=== PATIENT | male | born 1960 | race Caucasian/White ===

== ENCOUNTER 2020-09-24 19:57 | Inpatient (IN) | payer BC, MEDICAID ==
[~2020-09-24] VITALS: Ht 172.7 cm; Wt 102.3 kg
[~2020-09-24 19:57] MED LIST: CEFD300C37 PO; eliquis
[2020-09-24] MEDS ORDERED: ONDANSETRON 2MG/ML, 2ML ONE (20:29)
[2020-09-24] MEDS ORDERED: KETOROLAC 30 MG/1 ML ONE (20:29)
[2020-09-24] MEDS ORDERED: ONDANSETRON 2MG/ML, 2ML IVPush ONE (20:30)
[2020-09-24] MEDS ORDERED: SODIUM CHLORIDE FLUSH 10ML SYR IVF ONE (20:30)
[2020-09-24] MEDS ORDERED: SODIUM CHLORIDE 0.9% 1,000ML IV ONE (20:30)
[2020-09-24] MEDS ORDERED: KETOROLAC 30 MG/1 ML IM ONE (20:30)
[2020-09-24 20:44] LABS: BASOPHILS % (AUTO) 1 % (0-1); EOSINOPHILS % (AUTO) 5 % (1-7); LYMPHOCYTES % (AUTO) 20 % (22-44); MEAN CORPUSCULAR HGB CONC 33.6 g/dL (33.2-36.2); MEAN PLATELET VOLUME 7.9 fL (7.4-10.4); MONOCYTES % (AUTO) 10 % (2-9); NEUTROPHILS % (AUTO) 64 % (42-75); PLATELET COUNT 91 x10^3/uL (130-400); RED CELL DISTRIBUTION WIDTH 15.3 % (9.4-14.8)
[2020-09-24 20:45] LABS: MD NO
[2020-09-24 20:52] LABS: ALANINE AMINOTRANSFERASE 29 U/L (12-78); ALBUMIN 2.9 g/dL (3.4-5.0); ANION GAP 7 mmol/L (5-15); CALCIUM 8.5 mg/dL (8.5-10.1); CHLORIDE 110 mmol/L (98-107); CREATININE 0.82 mg/dL (0.7-1.3)
[2020-09-24 20:55] LABS: ALKALINE PHOSPHATASE 119 U/L (45-117); BILIRUBIN,TOTAL 0.4 mg/dL (0.2-1.0); INTERNATIONAL NORMALIZED RATIO 1.08 (0.93-1.1); PROTHROMBIN TIME 11.5 Seconds (9.6-11.5)
[2020-09-24] MEDS ORDERED: KETOROLAC 30 MG/1 ML IVPush ONE (21:00)
--- NOTE | 2020-09-24 21:10 | NUR ---
PT UNABLE TO GIVE URINE SAMPLE AT THIS TIME.
--- NOTE | 2020-09-24 21:13 | NUR ---
PT BIB SELF VIA POV. PER PT "I HAVE KIDNEY STONES. I HAD STENTS PLACED 4 MONTHS AGO. IM URINATING BLOOD FOR 2 MONTHS". PT STATES HE DRINKS 1/2 PINT OF WHISKEY TO HELP WITH PAIN FROM KIDNEY STONES, BUT RECENTLY PAIN HAS GOTTEN WORSE. PT RESTING IN [facility], MONITORING IN PLACE, JEN AT THIS TIME, WCYAZMIN.
[2020-09-24 21:56] LABS: MICROSCOPIC INDICATED
--- NOTE | 2020-09-24 22:06 | NUR ---
PT TO XRAY AT THIS TIME.
--- NOTE | 2020-09-24 22:51 | NUR ---
PT RESTING IN [facility], PER PT NO NEEDS AT THIS TIME, WCTM.
[2020-09-25] LABS: AMPHETAMINE SCREEN, URINE Positive (Negative); BARBITURATE SCREEN, URINE Negative (Negative); BENZODIAZEPINE SCREEN, URINE Negative (Negative); CANNABINOID SCREEN, URINE Negative (Negative); COCAINE SCREEN, URINE Negative (Negative); METHADONE SCREEN, URINE Negative (Negative); OPIATE SCREEN, URINE Negative (Negative)
[2020-09-25] MEDS ORDERED: SODIUM CHLORIDE 0.9% 1,000 ML IV ONE
[2020-09-25] MEDS ORDERED: CEFTRIAXONE 2 GM in DEXTROSE 5% 50 ML IVPB ONE
[2020-09-25 00:25] VITALS: BP 144/76
[2020-09-25] MEDS ORDERED: KETOROLAC 30 MG/1 ML IV PRN (00:30)
[2020-09-25] MEDS ORDERED: BISACODYL 10 MG SUPP PR PRN (00:30)
[2020-09-25] MEDS ORDERED: POLYETHYLENE GLYCOL 17 GM PACKET PO PRN (00:30)
[2020-09-25] MEDS ORDERED: ACETAMINOPHEN 325 MG TABLET PO PRN (00:30)
[2020-09-25] MEDS ORDERED: ONDANSETRON 2MG/ML, 2ML IVPush PRN (00:30)
[2020-09-25] MEDS ORDERED: FLU VACC QS2020-21(6MOS UP)/PF 60MCG/0.5 ML SYR IM-VACC ONE (01:00)
[2020-09-25] MEDS: morphine SULFATE 10 MG/ML, 1ML IVPush PRN ×2 (01:33→09:35)
[2020-09-25 05:24] LABS: BASOPHILS % (AUTO) 1 % (0-1); EOSINOPHILS % (AUTO) 5 % (1-7); LYMPHOCYTES % (AUTO) 24 % (22-44); MEAN CORPUSCULAR HEMOGLOBIN 33.9 pg (27.5-34.5); MEAN CORPUSCULAR HGB CONC 33.4 g/dL (33.2-36.2); MEAN PLATELET VOLUME 8.5 fL (7.4-10.4); MONOCYTES % (AUTO) 14 % (2-9); NEUTROPHILS % (AUTO) 56 % (42-75); PLATELET COUNT 66 x10^3/uL (130-400); RED BLOOD COUNT 3.57 x10^6/uL (4.38-5.82); RED CELL DISTRIBUTION WIDTH 15.7 % (9.4-14.8)
[2020-09-25 05:26] LABS: MD NO
[2020-09-25 05:34] LABS: ANION GAP 3 mmol/L (5-15); CALCIUM 7.8 mg/dL (8.5-10.1); CHLORIDE 113 mmol/L (98-107)
[2020-09-25 05:36] LABS: CREATININE 0.72 mg/dL (0.7-1.3)
[2020-09-25] MEDS: SODIUM CHLORIDE 0.9% 1,000 ML IV SCH ×3 (05:41→23:00)
[2020-09-25 06:32] VITALS: BP 142/74
[2020-09-25] MEDS: SENNA/DOCUSATE TABLET PO SCH (08:59)
[2020-09-25] MEDS ORDERED: RIVA20TA PO (10:37)
[2020-09-25] MEDS ORDERED: RIVAROXABAN 20 MG TABLET PO SCH (11:00)
[2020-09-25 12:01] VITALS: BP 166/90
[2020-09-25 18:56] VITALS: BP 127/77
[2020-09-25] MEDS: CEFTRIAXONE 2 GM in DEXTROSE 5% 50 ML IVPB SCH (23:00)
[2020-09-26 00:16] VITALS: BP 150/78
[2020-09-26 06:37] VITALS: BP 130/76
[2020-09-26 07:59] LABS: BASOPHILS % (AUTO) 2 % (0-1); EOSINOPHILS % (AUTO) 4 % (1-7); LYMPHOCYTES % (AUTO) 18 % (22-44); MEAN CORPUSCULAR HGB CONC 33.4 g/dL (33.2-36.2); MEAN PLATELET VOLUME 8.4 fL (7.4-10.4); MONOCYTES % (AUTO) 12 % (2-9); NEUTROPHILS % (AUTO) 64 % (42-75); PLATELET COUNT 67 x10^3/uL (130-400); RED BLOOD COUNT 3.72 x10^6/uL (4.38-5.82)
[2020-09-26 08:06] LABS: ALANINE AMINOTRANSFERASE 25 U/L (12-78); ALBUMIN 2.8 g/dL (3.4-5.0); ANION GAP 4 mmol/L (5-15); CALCIUM 7.8 mg/dL (8.5-10.1); CHLORIDE 108 mmol/L (98-107); CREATININE 0.69 mg/dL (0.7-1.3)
[2020-09-26 08:07] LABS: MD NO
[2020-09-26 08:08] LABS: ALKALINE PHOSPHATASE 109 U/L (45-117); BILIRUBIN,TOTAL 1.3 mg/dL (0.2-1.0); TOTAL PROTEIN 6.7 g/dL (6.4-8.2)
[2020-09-26] MEDS: SENNA/DOCUSATE TABLET PO SCH (08:39)
[2020-09-26] MEDS: morphine SULFATE 10 MG/ML, 1ML IVPush PRN ×2 (08:41→21:47)
[2020-09-26 12:25] VITALS: BP 147/78
[2020-09-26 18:37] VITALS: BP 153/84
[2020-09-27] VITALS: BP 95/73
[2020-09-27] MEDS: CEFTRIAXONE 2 GM in DEXTROSE 5% 50 ML IVPB SCH ×2 (00:03→23:49)
[2020-09-27 02:07] VITALS: BP 144/72
[2020-09-27 06:51] VITALS: BP 139/82
[2020-09-27 07:05] LABS: BASOPHILS % (AUTO) 1 % (0-1); EOSINOPHILS % (AUTO) 4 % (1-7); LYMPHOCYTES % (AUTO) 19 % (22-44); MEAN CORPUSCULAR HEMOGLOBIN 33.6 pg (27.5-34.5); MEAN CORPUSCULAR HGB CONC 33.5 g/dL (33.2-36.2); MEAN PLATELET VOLUME 8.5 fL (7.4-10.4); MONOCYTES % (AUTO) 11 % (2-9); NEUTROPHILS % (AUTO) 65 % (42-75); PLATELET COUNT 75 x10^3/uL (130-400); RED CELL DISTRIBUTION WIDTH 15.1 % (9.4-14.8)
[2020-09-27 07:13] LABS: MD NO
[2020-09-27 07:17] LABS: ALANINE AMINOTRANSFERASE 25 U/L (12-78); ANION GAP 6 mmol/L (5-15); CALCIUM 8.4 mg/dL (8.5-10.1); CHLORIDE 106 mmol/L (98-107); CREATININE 0.69 mg/dL (0.7-1.3)
[2020-09-27 07:20] LABS: ALKALINE PHOSPHATASE 111 U/L (45-117); TOTAL PROTEIN 6.9 g/dL (6.4-8.2)
[2020-09-27] MEDS: SENNA/DOCUSATE TABLET PO SCH (08:29)
[2020-09-27 13:04] VITALS: BP 156/86
[2020-09-27 17:15] LABS: AMPHETAMINE SCREEN, URINE Negative (Negative); BARBITURATE SCREEN, URINE Negative (Negative); BENZODIAZEPINE SCREEN, URINE Negative (Negative); CANNABINOID SCREEN, URINE Negative (Negative); COCAINE SCREEN, URINE Negative (Negative); METHADONE SCREEN, URINE Negative (Negative); OPIATE SCREEN, URINE Negative (Negative)
[2020-09-27 18:24] VITALS: BP 167/91
[2020-09-28 00:19] VITALS: BP 178/91
[2020-09-28 00:33] VITALS: BP 155/78
[2020-09-28 05:13] LABS: BASOPHILS % (AUTO) 1 % (0-1); EOSINOPHILS % (AUTO) 5 % (1-7); LYMPHOCYTES % (AUTO) 20 % (22-44); MEAN CORPUSCULAR HEMOGLOBIN 34.3 pg (27.5-34.5); MEAN CORPUSCULAR HGB CONC 34.3 g/dL (33.2-36.2); MEAN PLATELET VOLUME 8.9 fL (7.4-10.4); MONOCYTES % (AUTO) 14 % (2-9); NEUTROPHILS % (AUTO) 61 % (42-75); PLATELET COUNT 76 x10^3/uL (130-400); RED BLOOD COUNT 3.83 x10^6/uL (4.38-5.82); RED CELL DISTRIBUTION WIDTH 14.9 % (9.4-14.8)
[2020-09-28 05:18] LABS: CHLORIDE 105 mmol/L (98-107)
[2020-09-28 05:19] LABS: MD NO
[2020-09-28 05:23] LABS: ALANINE AMINOTRANSFERASE 25 U/L (12-78); ALKALINE PHOSPHATASE 111 U/L (45-117); ANION GAP 7 mmol/L (5-15); BILIRUBIN,TOTAL 0.9 mg/dL (0.2-1.0); CALCIUM 8.7 mg/dL (8.5-10.1); CREATININE 0.75 mg/dL (0.7-1.3); TOTAL PROTEIN 7.2 g/dL (6.4-8.2)
[2020-09-28 06:23] VITALS: BP 134/68
[2020-09-28] MEDS: SENNA/DOCUSATE TABLET PO SCH (08:39)
[2020-09-28 12:50] VITALS: BP 173/98
[2020-09-28] MEDS ORDERED: hydrALAzine 20 MG/ML, 1ML ONE ×2 (16:52→20:23)
[2020-09-28] MEDS ORDERED: FENTANYL PF 250 MCG/5ML ONE (16:57)
[2020-09-28] MEDS ORDERED: PROPOFOL 10 MG/ML, 20ML ONE (17:25)
[2020-09-28] MEDS ORDERED: DEXAMETHASONE 4 MG/ML, 1ML ONE (17:25)
[2020-09-28] MEDS ORDERED: MIDAZOLAM 1 MG/ML, 2ML ONE (17:25)
[2020-09-28] MEDS ORDERED: ROCURONIUM 10MG/ML,5ML ONE (17:25)
[2020-09-28] MEDS ORDERED: MIDAZOLAM 1 MG/ML, 2ML IV PRN (17:30)
[2020-09-28] MEDS ORDERED: PROMETHAZINE 12.5 MG SUPP PR PRN (17:30)
[2020-09-28] MEDS ORDERED: EPHEDRINE 50 MG/ML, 1ML IVPush PRN (17:30)
[2020-09-28] MEDS ORDERED: ONDANSETRON 2MG/ML, 2ML IVPush PRN (17:30)
[2020-09-28] MEDS ORDERED: HYDROmorphone 1 MG/ML, 1ML INJ IVPush PRN (17:30)
[2020-09-28] MEDS ORDERED: PROMETHAZINE 25 MG/ML, 1ML IVPush PRN (17:30)
[2020-09-28] MEDS ORDERED: DIAZEPAM 5 MG/ML, 2ML IVPush PRN (17:30)
[2020-09-28] MEDS ORDERED: LORazepam 2 MG/ML, 1ML IVPush PRN (17:30)
[2020-09-28] MEDS ORDERED: ALBUTEROL SULFATE 2.5 MG/3 ML NPPB PRN (17:30)
[2020-09-28] MEDS ORDERED: DIPHENHYDRAMINE 50 MG/ML, 1ML IVPush PRN ×2 (17:30)
[2020-09-28] MEDS ORDERED: OXYcodone 5 MG/5 ML ORAL.SOL UDC PO PRN (17:30)
[2020-09-28] MEDS ORDERED: LABETALOL 5MG/ML, 20ML IV PRN (17:30)
[2020-09-28] MEDS ORDERED: MEPERIDINE/PF 25MG/0.5ML IVPush PRN (17:30)
[2020-09-28] MEDS ORDERED: CEFTRIAXONE 1,000 MG ONE (17:49)
[2020-09-28] MEDS ORDERED: OMNIPAQUE 350 MG/ML, 50 ML BOTTLE ONE (18:33)
[2020-09-28] MEDS ORDERED: FENTANYL PF 100 MCG/2ML ONE (19:50)
[2020-09-28] MEDS ORDERED: OXYcodone 5 MG/5 ML ORAL.SOL UDC ONE (19:50)
[2020-09-28] MEDS: FENTANYL PF 100 MCG/2ML IV PRN ×3 (19:55→20:14)
[2020-09-28] MEDS ORDERED: ONDANSETRON 2MG/ML, 2ML ONE (20:06)
[2020-09-28] MEDS ORDERED: PROMETHAZINE 25 MG/ML, 1ML ONE (20:07)
[2020-09-28] MEDS: hydrALAzine 20 MG/ML, 1ML IV PRN ×2 (20:15→20:36)
[2020-09-29] MEDS: CEFTRIAXONE 2 GM in DEXTROSE 5% 50 ML IVPB SCH (00:14)
[2020-09-29 00:17] VITALS: BP 155/90
[2020-09-29 06:05] LABS: BASOPHILS % (AUTO) 0 % (0-1); EOSINOPHILS % (AUTO) 0 % (1-7); LYMPHOCYTES % (AUTO) 7 % (22-44); MEAN CORPUSCULAR HGB CONC 33.4 g/dL (33.2-36.2); MEAN PLATELET VOLUME 8.7 fL (7.4-10.4); MONOCYTES % (AUTO) 7 % (2-9); NEUTROPHILS % (AUTO) 86 % (42-75); PLATELET COUNT 90 x10^3/uL (130-400); RED BLOOD COUNT 3.97 x10^6/uL (4.38-5.82); RED CELL DISTRIBUTION WIDTH 15.1 % (9.4-14.8)
[2020-09-29 06:10] LABS: CHLORIDE 105 mmol/L (98-107); MD NO
[2020-09-29 06:15] LABS: ALANINE AMINOTRANSFERASE 24 U/L (12-78); ALBUMIN 2.8 g/dL (3.4-5.0); ALKALINE PHOSPHATASE 105 U/L (45-117); ANION GAP 7 mmol/L (5-15); BILIRUBIN,TOTAL 0.5 mg/dL (0.2-1.0); CALCIUM 8.3 mg/dL (8.5-10.1); CREATININE 0.92 mg/dL (0.7-1.3); TOTAL PROTEIN 7.1 g/dL (6.4-8.2)
[2020-09-29 07:37] VITALS: BP 124/76
[2020-09-29] MEDS: SENNA/DOCUSATE TABLET PO SCH (08:26)
[2020-09-29] MEDS ORDERED: LOSARTAN 50MG TABLET PO SCH (09:00)
[2020-09-29] MEDS ORDERED: AMOX1TAB64 PO (11:18)
[2020-09-29] MEDS ORDERED: LOSA50TA2 PO (11:18)
[2020-09-29 13:15] VITALS: BP 157/97
== END 2020-09-29 17:21 | disposition home or self-care (01) | DRG 659 ==
LOC: ED 20:36 → EDIP 23:58 → 3N 09-25 00:26
PROVIDERS: ATTEND Hospitalist
PROC: 0T778DZ Dilation of Left Ureter with Intraluminal Device, Via Natural or Artificial Opening Endoscopic (ICD-10-PCS; 2020-09-28)
PROC: 0TC78ZZ Extirpation of Matter from Left Ureter, Via Natural or Artificial Opening Endoscopic (ICD-10-PCS; 2020-09-28)
PROC: 0TP98DZ Removal of Intraluminal Device from Ureter, Via Natural or Artificial Opening Endoscopic (ICD-10-PCS; principal; 2020-09-28 17:45)
DX: N13.6 Pyonephrosis (principal); E43 Unspecified severe protein-calorie malnutrition; K76.6 Portal hypertension; K74.60 Unspecified cirrhosis of liver; D53.9 Nutritional anemia, unspecified; B18.2 Chronic viral hepatitis C; E78.5 Hyperlipidemia, unspecified; F17.210 Nicotine dependence, cigarettes, uncomplicated; F15.10 Other stimulant abuse, uncomplicated; D69.6 Thrombocytopenia, unspecified; G89.29 Other chronic pain; N40.0 Benign prostatic hyperplasia without lower urinary tract symptoms; Z86.718 Personal history of other venous thrombosis and embolism; Z91.19 Patient's noncompliance with other medical treatment and regimen
CPT/HCPCS: 36415; 74018; 74176; 76000; 76770; 80048; 80053; 80307; 81001; 82607; 85025; 85610; 85730; 87040; 87077; 87086; 87186; 87635; 88300; 90686; 93005; 96361; 96374; 96375; 99285; G0378; J0696; J1100; J1885; J2250; J2405; J2550; J2704; J3010; Q9967; C1769; C2617; J0360; J2270; J7030